=== PATIENT | female | born 1985 | race Caucasian/White ===

== ENCOUNTER 2021-10-18 11:55 | Emergency (ER) | payer BC, SELFPAY ==
[2021-10-18 12:03] VITALS: BP 124/87; PULSE 99; RESP 16; TEMP 36.5; O2SAT 100
--- NOTE | 2021-10-18 12:05 | ED.SKABFB ---
HPI - Skin/Abscess/Foreign Bdy General Chief complaint: Skin/Abscess/Foreign Body Stated complaint: insect bites Time Seen by Provider: 10/18/21 12:05 Source: patient and RN notes reviewed Mode of arrival: ambulatory Limitations: no limitations History of Present Illness HPI narrative: 36-year-old female presents with concern for swelling, redness, tenderness to her right foot. She reports symptoms started after she was bit by mosquitoes. Reports she had several mosquito bites last night that were itchy and appeared like typical mosquito bites, she woke up this morning with her foot generally red, warm, tender. She reports the area does not currently itch. She denies any lacerations, abrasions. She denies injury to the foot, decree sensation, strength, range of motion She denies fever, body aches, chills, sweats. MD complaint: insect bite/sting Related Data Home Medications Medication Instructions Recorded Confirmed phentermine 10/18/21 Allergies Allergy/AdvReac Type Severity Reaction Status Date / Time No Known Allergies Allergy Verified 10/18/21 12:00 Review of Systems Review of Systems: CONSTITUTIONAL: Denies malaise, chills, sweats, or fever. EYES: Denies redness, or discharge. ENT: Denies rhinorrhea, congestion, swollen lips, swollen tongue CARDIOVASCULAR: Denies chest pain, palpitations, or edema. RESPIRATORY: Denies cough or dyspnea. GASTROINTESTINAL: Denies abdominal pain, nausea, vomiting SKIN: Reports redness, warmth, tenderness to the dorsal aspect of the right foot MUSCULOSKELETAL: Denies joint pain or myalgia. NEUROLOGIC: Denies headache. All systems reviewed & are unremarkable except as noted in HPI and below PMFSH Comments At time of signature, agree with nursing past medical, surgical, social and family history. There is no relevant family history pertinent to the presenting complaint Exam Narrative: GENERAL: Well-appearing, well-nourished, and in no acute distress. HEAD: Normocephalic, atraumatic. EYES: PERRLA, conjunctivae clear ENT: Mucous membranes moist. NECK: Supple. No lymphadenopathy CHEST: Clear to auscultation. No respiratory distress. HEART: Regular rate and rhythm. SKIN: Warm, dry. Dorsal right foot erythematous, edematous, indurated with erythema and edema spreading to the ankle. No open skin noted NEURO: Alert and oriented x3. PSYCH: Normal mood and affect Course Course Emergency Course: Patient is aware of diagnosis, understands and agrees to treatment plan. Anticipatory guidance given. Patient agrees to follow-up as directed and is aware of reasons to seek care at the emergency department. Portions of this record may have been created with voice recognition software Level of Care: Express Care Visit Vital Signs Vital signs: Vital Signs Temperature 97.7 F 10/18/21 12:03 Pulse Rate 99 10/18/21 12:03 Respiratory Rate 16 10/18/21 12:03 Blood Pressure 124/87 10/18/21 12:03 Pulse Oximetry 100 10/18/21 12:03 Temperature 97.7 F 10/18/21 12:03 Pulse Rate 99 10/18/21 12:03 Respiratory Rate 16 10/18/21 12:03 Blood Pressure 124/87 10/18/21 12:03 Pulse Oximetry 100 10/18/21 12:03 Reviewed. MDM - Skin/Abscess/Foreign Bdy MDM Narrative Medical decision making narrative: Does not appear at this time to be erythema multiforme, bullous, SJS, TEN; no evidence at this time to suggest RMSF, endocarditis or Lyme disease; patient looks well, nontoxic and is tolerating oral intake; no neurologic signs or symptoms; no headache, photophobia or neck pain; afebrile; appropriate for initial outpatient treatment; discussed the importance of follow-up, patient agrees; question, viral exanthema, contact dermatitis, allergic dermatitis, eczema, urticaria, cellulitis, allergic reaction. No soft palate or uvula edema, no tongue, lip edema or other mucosal involvement, no respiratory compromise, no stridor, no wheezing, no wheezing, no history of syncope, n
== END 2021-10-18 12:16 | disposition home or self-care (01) ==
PROVIDERS: Emergency Provider Nurse Practitioner
DX: L03.115 Cellulitis of right lower limb (principal)
CPT/HCPCS: 99213; G0463